=== PATIENT | female | born 1950 | race Caucasian/White ===

== ENCOUNTER 2016-03-27 10:08 | Outpatient (RCR) | payer MEDICARE, OTHER ==
--- OUTSIDE RECORDS SUMMARY | 2016-02-29 13:55 | XMS REPORT | Continuity of Care Document ---
Author Author [facility] Organization [facility] Address Unknown Phone Unavailable Care Team Providers Care Correctional Lieutenant Name Role Phone Diego Jackson PCP [phone] Source Comments Some departments are not documenting in the electronic medical record. If you do not see the information that you expected, contact Release of Information in the Health Information Management department at [phone] for further assistance in locating additional records.[facility] Active Allergies and Adverse Reactions Allergen Noted Date Severity Reactions Comments Flagyl 05/18/2014 HIVES Current Medications Prescription Sig. Disp. Refills Start End Date Status Date acetaminophen (TYLENOL) Take 1,000 mg by mouth Active 500 mg tablet every 6 hours as needed. cetirizine (ZYRTEC) 10 mg Take 10 mg by mouth Active tablet daily. diltiazem CD (CARDIZEM Take 240 mg by mouth Active CD) 240 mg capsule daily. LORazepam (ATIVAN) 1 mg Take 1 mg by mouth at Active tablet bedtime daily. losartan(+) (COZAAR) 100 Take 100 mg by mouth at Active mg tablet bedtime daily. aspirin 81 mg chewable Take 81 mg by mouth Active tablet daily. levothyroxine (SYNTHROID) Take 1 Tab by mouth 10 Tab 0 05/01/19 Active 75 mcg tablet daily. 16 Active Problems Problem Noted Date Lymphedema of left leg 11/26/2014 Overview: DX on visit 11/26/2014 L ast Assessment & Plan: Persistent lymphedema. Is minimal Seen specialist. Has a lymphocyst, presumptive on the left. CT pending. Vulvar cancer, carcinoma (HCC) 05/18/2014 Overview: Ms. Cruz is a 64 yo with recurrent Vulvar Cancer. PRIOR THERAPY: 1. She was seen by her OBGYN on 04/13/2014 for her annual examination as well as with c/o "irritated area on the labia from a yeast infection" . Examination showed a 2 cm raised ulcerated white lesion along the right labia majora/minora at about 3 o'clock. . A Biopsy was performed and showed: a well-differentiated at least superficially invasive squamous cell carcinoma.( PEGGY. [id number]). 2. Clinically the lesion was suspicious for invasive disease and on 05/27/2014 she underwent Left radical hemivulvectomy and left sentinel lymph node biopsy. Frozen section of the left nodes were negative. Final pathology: C/w a 2.6 cm lesion with DOI of 1.5 mm. All LNs were negative. 3. She was last seen in the office on 02/25/2015 for routine follow up. I noted that she had a more firm mass in her left groin. She felt that it was related to her lymphocyst which was present postoperative. However, she had an outside CT Scan done; results available on 03/22/2015 which showed: Reviewed outside films from her CT Scan dated 03/17/2015. She has a 4.6 x 5.9 cm soft tissue mass in the left inguinal region. I reviewed the films and it does appear to be solid and not cystic. Her sentinel nodes were negative. FNA was positive for recurrent disease. 4. PET scan on 04/15/2015, Large hypermetabolic left inguinal mass consistent with patient's known metastatic adenopathy. Scan revealed a 7.7cm mass, in left inguinal region 5. On 04/30/2015, s/p radical dissection of the left groin with both superficial and deep dissection into the inguinal ring,The tumor was adherent to the femoral vessels, and required sacrificing the lateral femoral v. To remove the tumor. It also extended into the inguinal canal and along the adductor longus. 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 (03/19), which measured 7.4 cm. 6. Pt started chemoradiation at [facility]. In Dr. Jones note indicates he is planning radiation to the left inguinal region and decision was made not to treat the vulvar region. 7. She was last seen by my ANDROID PROGRAMMER 2 weeks after starting her treatment, on 06/24/2015 8. She presents to the office today, 08/26/2015, having completed her treatment on 07/23/2015. She was treated only to the left groin at a dose of 6000 cGy. She was not given WPXRT. 9. Last seen on 10/28/2015. PETCT done showed: Postsurgical changes of the left groin with edema and loss of tissue fat planes without clearcut evidence for metastatic disease. No metabolically active abdominopelvic adenopathy or osseous lesions. PET/CT: done on 01/20/2016 Status post left groin resection with stable mild hypermetabolic activity in the operative bed, compatible with post therapeutic scarring. No hypermetabolic mass or lymphadenopathy to suggest tumor recurrence or metastatic disease. IMPRESSION CHEST: 1. Stable CT chest without evidence of metastatic disease or adenopathy. 2. Stable tiny noncalcified granulomas within both lungs. ABDOMEN AND PELVIS: 1. Stable CT abdomen/pelvis without evidence of metastatic disease or adenopathy. 2. Persistent soft tissue stranding within the left groin with decrease in size of postoperative fluid collection. Last Assessment & Plan: PLAN: RV in 3 months with PET/CT. Resolved Problems Problem Noted Date Resolved Date Cellulitis of left lower extremity 05/10/2015 06/28/2015 Lymphadenopathy 04/30/2015 05/10/2015 Mass of left inguinal region 04/22/2015 05/10/2015 Most Recent Encounters Date Type Specialty Providers Description 02/15/2016 Telephone Oncology Deedee Morales APRN Patient Questions - PT called regarding raised area noted in R labial area that has persistent since first surgery in 05/2014. Since vulvar surgery in 04/2015 and swelling no longer in that area, noted that this area is still there. Denies pain, drainage, or increased in size. Notices some irriation when walking. Has a RV in 04/2016 with Jean HELMS. Discussed with Daisha Morales ANDROID PROGRAMMER and states that the pt could be seen early if any changes of sites or symptoms worsen. Called pt and decided to keep appt with Jean Suarez in 05/05. 01/20/2016 Office Visit Oncology Bessie Muhammad MD Vulvar cancer, carcinoma (HCC) (Primary Dx) 01/20/2016 Hospital Radiology Bessie Muhammad MD Encounter 01/20/2016 Hospital Radiology Bessie Muhammad MD Encounter 01/20/2016 Ancillary Oncology Bessie Muhammad MD Vulvar cancer, carcinoma Orders (HCC) (Primary Dx) 01/20/2016 Screening Form 12/08/2015 Telephone Oncology Bessie Muhammad MD Records Request Social History Tobacco Use Types Packs/Day Years Used Date Former Smoker Cigarettes 0.2 4 Quit: 05/26/1979 Smokeless Tobacco: Never Used Tobacco Cessation: Counseling Given: No Comments: rare use in her 30's Alcohol Use Drinks/Week oz/Week Comments No Last Filed Vital Signs Vital Sign Reading Time Taken Blood Pressure 145/75 01/20/2016 1:56 PM CDT Pulse 72 01/20/2016 1:56 PM CDT Temperature 36.4 C (97.5 F) 01/20/2016 1:56 PM CDT Respiratory Rate 16 10/28/2015 3:07 PM CDT Height 1.626 m (5' 4.02") 01/20/2016 1:56 PM CDT Weight 91.445 kg (201 lb 9.6 oz) 01/20/2016 1:56 PM CDT Body Mass Index 34.59 01/20/2016 1:56 PM CDT Oxygen Saturation 98% 01/20/2016 1:56 PM CDT Plan of Care Date Type Specialty Providers Description 04/20/2016 Appointment Oncology Alexsandra Suarez PA [address] [address] [phone] (Fax) 07/20/2016 Appointment Radiology Bessie Muhammad MD [address] [facility] [address] [place] [address] [phone] (Fax) 07/20/2016 Appointment Radiology Bessie Muhammad MD [address] [facility] [address] [place] [address] [phone] (Fax) 07/20/2016 Appointment Oncology Bessie Muhammad MD [address] [facility] [address] [place] [address] [phone] (Fax) Health Maintenance Due Date Last Done Comments Hepatitis C Screening 1950 Physical (Comprehensive) 1956 Exam Pertussis Vaccine 1960 Tetanus Vaccine 1966 Breast Cancer Screening 1989 Colorectal Cancer 11/21/1999 Screening Shingles Vaccine 2009 Osteoporosis Screening 2014 Prevnar/Pneumovax (#1) 2014 Influenza Vaccine 11/18/2015 Results from Last 3 Months NM PET SCAN TORSO (SKULL-THIGHS) (01/20/2016 11:19 AM) Impressions Status post left groin resection with stable mild hypermetabolic activity in the operative bed, compatible with post therapeutic scarring. No hypermetabolic mass or lymphadenopathy to suggest tumor recurrence or metastatic disease. Approved by Raymond Nagel M.D. on 01/20/2016 11:41 AM By my electronic signature, I attest that I have personally reviewed the images for this examination and formulated the interpretations and opinions expressed in this report Finalized by Alonso Arteaga D.O. on 01/20/2016 12:56 PM. Dictated by Raymond Nagel M.D. on 01/20/2016 11:26 AM. Narrative PET/CT NECK, CHEST, ABDOMEN AND PELVIS CLINICAL HISTORY: 65-year-old female, vulvar cancer (carcinoma). RADIOPHARMACEUTICAL: 17 mCi IV Fluorine-18 fluorodeoxyglucose (FDG) BLOOD GLUCOSE LEVEL AT THE TIME OF RADIOPHARMACEUTICAL ADMINISTRATION: 95 mg / dL TECHNIQUE: Routine PET images ranging from the base of the skull to the upper thighs were obtained 75 minutes after IV administration of F-18 Fluorodeoxyglucose (FDG). PET images were reviewed in standard orthogonal projections. Low dose non- contrast CT imaging was performed for attenuation correction and localization purposes. COMPARISON: PET scan October 28, 2015. FINDINGS: Alonso Arteaga D.O. has personally reviewed these images and formulated the interpretations and opinions expressed in this report. Mean blood pool SUV 1.55, maximum 2.55. Previous mean 1.43, maximum 2.43. Mean hepatic SUV 2.58, maximum 3.89. Previous mean 2.35, maximum 4.39. Physiologic uptake of F-18 Fluorodeoxyglucose (FDG) tracer is seen within the brain, heart, kidneys, bladder, and bowel. Head / Neck: No metabolically active nodes are visualized in the head or neck. Chest: No metabolically active nodes are visualized in the chest. There is mild ectasia of the ascending thoracic aorta. Atherosclerotic calcifications are noted about the coronary arteries. There is a stable, subcentimeter pulmonary nodule (image 84). Abdomen / Pelvis: No metabolically active nodes are visualized in the abdomen or pelvis. Postsurgical changes of prior left groin resection with scarring and associated surgical clips throughout the operative bed. There is unchanged low level FDG uptake throughout the operative bed, demonstrating a maximum SUV of 2.8 (index 739), previously 3.0. Osseous Structures: No metabolically active areas are visualized in the osseous structures. Procedure Note Interface, Radiant Results - Angelina Jan 20, 2016 12:59 PM CDT PET/CT NECK, CHEST, ABDOMEN AND PELVIS CLINICAL HISTORY: 65-year-old female, vulvar cancer (carcinoma). RADIOPHARMACEUTICAL: 17 mCi IV Fluorine-18 fluorodeoxyglucose (FDG) BLOOD GLUCOSE LEVEL AT THE TIME OF RADIOPHARMACEUTICAL ADMINISTRATION: 95 mg / dL TECHNIQUE: Routine PET images ranging from the base of the skull to the upper thighs were obtained 75 minutes after IV administration of F-18 Fluorodeoxyglucose (FDG). PET images were reviewed in standard orthogonal projections. Low dose non- contrast CT imaging was performed for attenuation correction and localization purposes. COMPARISON: PET scan October 28, 2015. FINDINGS: Alonso Arteaga D.O. has personally reviewed these images and formulated the interpretations and opinions expressed in this report. Mean blood pool SUV 1.55, maximum 2.55. Previous mean 1.43, maximum 2.43. Mean hepatic SUV 2.58, maximum 3.89. Previous mean 2.35, maximum 4.39. Physiologic uptake of F-18 Fluorodeoxyglucose (FDG) tracer is seen within the brain, heart, kidneys, bladder, and bowel. Head / Neck: No metabolically active nodes are visualized in the head or neck. Chest: No metabolically active nodes are visualized in the chest. There is mild ectasia of the ascending thoracic aorta. Atherosclerotic calcifications are noted about the coronary arteries. There is a stable, subcentimeter pulmonary nodule (image 84). Abdomen / Pelvis: No metabolically active nodes are visualized in the abdomen or pelvis. Postsurgical changes of prior left groin resection with scarring and associated surgical clips throughout the operative bed. There is unchanged low level FDG uptake throughout the operative bed, demonstrating a maximum SUV of 2.8 (index 739), previously 3.0. Osseous Structures: No metabolically active areas are visualized in the osseous structures. IMPRESSION Status post left groin resection with stable mild hypermetabolic activity in the operative bed, compatible with post therapeutic scarring. No hypermetabolic mass or lymphadenopathy to suggest tumor recurrence or metastatic disease. Approved by Raymond Nagel M.D. on 01/20/2016 11:41 AM By my electronic signature, I attest that I have personally reviewed the images for this examination and formulated the interpretations and opinions expressed in this report Finalized by Alonso Arteaga D.O. on 01/20/2016 12:56 PM. Dictated by Raymond Nagel M.D. on 01/20/2016 11:[address] CHEST W CONTRAST (01/20/2016 11:17 AM) Impressions CHEST: 1. Stable CT chest without evidence of metastatic disease or adenopathy. 2. Stable tiny noncalcified granulomas within both lungs. ABDOMEN AND PELVIS: 1. Stable CT abdomen/pelvis without evidence of metastatic disease or adenopathy. 2. Persistent soft tissue stranding within the left groin with decrease in size of postoperative fluid collection. Approved by Tal Gipson M.D. on 01/20/2016 11:36 AM By my electronic signature, I attest that I have personally reviewed the images for this examination and formulated the interpretations and opinions expressed in this report Finalized by Figueroa Mccormick M.D. on 01/20/2016 12:14 PM. Dictated by Tal Gipson M.D. on 01/20/2016 11:[address] CHEST, ABDOMEN AND PELVIS Clinical Indication:Female, 65 years old. Vulvar carcinoma, evaluation of disease posttreatment Technique: Multiple contiguous axial images were obtained through the chest, abdomen and pelvis following the administration of IV contrast material. Portal venous and delayed images were obtained Post processing coronal and sagittal reconstruction images were made from the axial images. IV contrast: Isovue-370 Bowel contrast:Gastroview Comparison: CT abdomen/pelvis and PET scan October 28, 2015 CHEST FINDINGS: Lower Neck: Unremarkable. Axilla, Mediastinum and Carla: No axillary, mediastinal or hilar adenopathy. Heart and Great Vessels: Normal size heart with mild calcific coronary artery disease. Normal caliber thoracic aorta. Airway, Lungs and Pleura: Stable scattered sub-5 mm pulmonary nodules (for example series 2 images 33 in the right upper lobe and 46 in the left lower lobe ), unchanged since February 2015 and consistent with noncalcified granulomas. No new pulmonary nodule. No pleural effusion or focal consolidation. Chest Wall and Osseous Structures: No lytic or blastic osseous lesion. ABDOMEN AND PELVIS FINDINGS: Liver and Biliary system: Normal sized liver without new or enhancing hepatic lesion. Stable subcentimeter hypodense lesion within segment 2/, which is too small to characterize though unchanged since at least February 2015 and likely represents a simple cyst. Unremarkable gallbladder. Spleen: Unremarkable. Adrenal Glands and Kidneys: Unremarkable adrenal glands and kidneys. Pancreas and Retroperitoneum: Unremarkable pancreas. No retroperitoneal adenopathy. Aorta and Major Vessels: Normal caliber abdominal aorta with moderate aortoiliac calcified plaque. Bowel, Mesentery and Peritoneal space: Normal caliber large and small bowel. Normal appendix. No ascites or mesenteric adenopathy. Pelvis: Unremarkable mildly distended urinary bladder. No pelvic adenopathy. Abdominal wall and Osseous Structures: Redemonstration of postoperative soft tissue stranding within the left inguinal region with decrease in size of postoperative fluid collection. Asymmetry and soft tissue thickening within the vulvar region, likely from prior resection. Procedure Note Interface, Radiant Results - Angelina Jan 20, 2016 12:[address] CHEST, ABDOMEN AND PELVIS Clinical Indication: Female, 65 years old. Vulvar carcinoma, evaluation of disease posttreatment Technique: Multiple contiguous axial images were obtained through the chest, abdomen and pelvis following the administration of IV contrast material. Portal venous and delayed images were obtained Post processing coronal and sagittal reconstruction images were made from the axial images. IV contrast: Isovue-370 Bowel contrast: Gastroview Comparison: CT abdomen/pelvis and PET scan October 28, 2015 CHEST FINDINGS: Lower Neck: Unremarkable. Axilla, Mediastinum and Carla: No axillary, mediastinal or hilar adenopathy. Heart and Great Vessels: Normal size heart with mild calcific coronary artery disease. Normal caliber thoracic aorta. Airway, Lungs and Pleura: Stable scattered sub-5 mm pulmonary nodules (for example series 2 images 33 in the right upper lobe and 46 in the left lower lobe ), unchanged since February 2015 and consistent with noncalcified granulomas. No new pulmonary nodule. No pleural effusion or focal consolidation. Chest Wall and Osseous Structures: No lytic or blastic osseous lesion. ABDOMEN AND PELVIS FINDINGS: Liver and Biliary system: Normal sized liver without new or enhancing hepatic lesion. Stable subcentimeter hypodense lesion within segment 2/, which is too small to characterize though unchanged since at least February 2015 and likely represents a simple cyst. Unremarkable gallbladder. Spleen: Unremarkable. Adrenal Glands and Kidneys: Unremarkable adrenal glands and kidneys. Pancreas and Retroperitoneum: Unremarkable pancreas. No retroperitoneal adenopathy. Aorta and Major Vessels: Normal caliber abdominal aorta with moderate aortoiliac calcified plaque. Bowel, Mesentery and Peritoneal space: Normal caliber large and small bowel. Normal appendix. No ascites or mesenteric adenopathy. Pelvis: Unremarkable mildly distended urinary bladder. No pelvic adenopathy. Abdominal wall and Osseous Structures: Redemonstration of postoperative soft tissue stranding within the left inguinal region with decrease in size of postoperative fluid collection. Asymmetry and soft tissue thickening within the vulvar region, likely from prior resection. IMPRESSION CHEST: 1. Stable CT chest without evidence of metastatic disease or adenopathy. 2. Stable tiny noncalcified granulomas within both lungs. ABDOMEN AND PELVIS: 1. Stable CT abdomen/pelvis without evidence of metastatic disease or adenopathy. 2. Persistent soft tissue stranding within the left groin with decrease in size of postoperative fluid collection. Approved by Tal Gipson M.D. on 01/20/2016 11:36 AM By my electronic signature, I attest that I have personally reviewed the images for this examination and formulated the interpretations and opinions expressed in this report Finalized by Figueroa Mccormick M.D. on 01/20/2016 12:14 PM. Dictated by Tal Gipson M.D. on 01/20/2016 11:[address] ABD/PELVIS W CONTRAST (01/20/2016 11:17 AM) Impressions CHEST: 1. Stable CT chest without evidence of metastatic disease or adenopathy. 2. Stable tiny noncalcified granulomas within both lungs. ABDOMEN AND PELVIS: 1. Stable CT abdomen/pelvis without evidence of metastatic disease or adenopathy. 2. Persistent soft tissue stranding within the left groin with decrease in size of postoperative fluid collection. Approved by Tal Gipson M.D. on 01/20/2016 11:36 AM By my electronic signature, I attest that I have personally reviewed the images for this examination and formulated the interpretations and opinions expressed in this report Finalized by Figueroa Mccormick M.D. on 01/20/2016 12:14 PM. Dictated by Tal Gipson M.D. on 01/20/2016 11:[address] CHEST, ABDOMEN AND PELVIS Clinical Indication:Female, 65 years old. Vulvar carcinoma, evaluation of disease posttreatment Technique: Multiple contiguous axial images were obtained through the chest, abdomen and pelvis following the administration of IV contrast material. Portal venous and delayed images were obtained Post processing coronal and sagittal reconstruction images were made from the axial images. IV contrast: Isovue-370 Bowel contrast:Gastroview Comparison: CT abdomen/pelvis and PET scan October 28, 2015 CHEST FINDINGS: Lower Neck: Unremarkable. Axilla, Mediastinum and Carla: No axillary, mediastinal or hilar adenopathy. Heart and Great Vessels: Normal size heart with mild calcific coronary artery disease. Normal caliber thoracic aorta. Airway, Lungs and Pleura: Stable scattered sub-5 mm pulmonary nodules (for example series 2 images 33 in the right upper lobe and 46 in the left lower lobe ), unchanged since February 2015 and consistent with noncalcified granulomas. No new pulmonary nodule. No pleural effusion or focal consolidation. Chest Wall and Osseous Structures: No lytic or blastic osseous lesion. ABDOMEN AND PELVIS FINDINGS: Liver and Biliary system: Normal sized liver without new or enhancing hepatic lesion. Stable subcentimeter hypodense lesion within segment 2/, which is too small to characterize though unchanged since at least February 2015 and likely represents a simple cyst. Unremarkable gallbladder. Spleen: Unremarkable. Adrenal Glands and Kidneys: Unremarkable adrenal glands and kidneys. Pancreas and Retroperitoneum: Unremarkable pancreas. No retroperitoneal adenopathy. Aorta and Major Vessels: Normal caliber abdominal aorta with moderate aortoiliac calcified plaque. Bowel, Mesentery and Peritoneal space: Normal caliber large and small bowel. Normal appendix. No ascites or mesenteric adenopathy. Pelvis: Unremarkable mildly distended urinary bladder. No pelvic adenopathy. Abdominal wall and Osseous Structures: Redemonstration of postoperative soft tissue stranding within the left inguinal region with decrease in size of postoperative fluid collection. Asymmetry and soft tissue thickening within the vulvar region, likely from prior resection. Procedure Note Interface, Radiant Results - Angelina Jan 20, 2016 12:[address] CHEST, ABDOMEN AND PELVIS Clinical Indication: Female, 65 years old. Vulvar carcinoma, evaluation of disease posttreatment Technique: Multiple contiguous axial images were obtained through the chest, abdomen and pelvis following the administration of IV contrast material. Portal venous and delayed images were obtained Post processing coronal and sagittal reconstruction images were made from the axial images. IV contrast: Isovue-370 Bowel contrast: Gastroview Comparison: CT abdomen/pelvis and PET scan October 28, 2015 CHEST FINDINGS: Lower Neck: Unremarkable. Axilla, Mediastinum and Carla: No axillary, mediastinal or hilar adenopathy. Heart and Great Vessels: Normal size heart with mild calcific coronary artery disease. Normal caliber thoracic aorta. Airway, Lungs and Pleura: Stable scattered sub-5 mm pulmonary nodules (for example series 2 images 33 in the right upper lobe and 46 in the left lower lobe ), unchanged since February 2015 and consistent with noncalcified granulomas. No new pulmonary nodule. No pleural effusion or focal consolidation. Chest Wall and Osseous Structures: No lytic or blastic osseous lesion. ABDOMEN AND PELVIS FINDINGS: Liver and Biliary system: Normal sized liver without new or enhancing hepatic lesion. Stable subcentimeter hypodense lesion within segment 2/, which is too small to characterize though unchanged since at least February 2015 and likely represents a simple cyst. Unremarkable gallbladder. Spleen: Unremarkable. Adrenal Glands and Kidneys: Unremarkable adrenal glands and kidneys. Pancreas and Retroperitoneum: Unremarkable pancreas. No retroperitoneal adenopathy. Aorta and Major Vessels: Normal caliber abdominal aorta with moderate aortoiliac calcified plaque. Bowel, Mesentery and Peritoneal space: Normal caliber large and small bowel. Normal appendix. No ascites or mesenteric adenopathy. Pelvis: Unremarkable mildly distended urinary bladder. No pelvic adenopathy. Abdominal wall and Osseous Structures: Redemonstration of postoperative soft tissue stranding within the left inguinal region with decrease in size of postoperative fluid collection. Asymmetry and soft tissue thickening within the vulvar region, likely from prior resection. IMPRESSION CHEST: 1. Stable CT chest without evidence of metastatic disease or adenopathy. 2. Stable tiny noncalcified granulomas within both lungs. ABDOMEN AND PELVIS: 1. Stable CT abdomen/pelvis without evidence of metastatic disease or adenopathy. 2. Persistent soft tissue stranding within the left groin with decrease in size of postoperative fluid collection. Approved by Tal Gipson M.D. on 01/20/2016 11:36 AM By my electronic signature, I attest that I have personally reviewed the images for this examination and formulated the interpretations and opinions expressed in this report Finalized by Figueroa Mccormick M.D. on 01/20/2016 12:14 PM. Dictated by Tal Gipson M.D. on 01/20/2016 11:18 AM. POC CREATININE, RAD (01/20/2016 9:57 AM) Component Value Range Creatinine, POC 0.6 0.4-1.00 MG/DL
[2016-03-27 10:22] LABS: BASOPHILS % (AUTO) 0 % (0-10); EOSINOPHILS # (AUTO) 0.1 10^3/uL (0.0-0.3); EOSINOPHILS % (AUTO) 2 % (0-10); LYMPHOCYTES # (AUTO) 1.4 X 10^3 (1.0-4.0); LYMPHOCYTES % (AUTO) 29 % (12-44); MEAN CORPUSCULAR HEMOGLOBIN 30 PG (25-34); MEAN CORPUSCULAR HGB CONC 33 G/DL (32-36); MEAN CORPUSCULAR VOLUME 90 FL (80-99); MEAN PLATELET VOLUME 10.4 FL (7.4-10.4); MONOCYTES # (AUTO) 0.8 X 10^3 (0.0-1.0); MONOCYTES % (AUTO) 17 % (0-12); NEUTROPHILS # (AUTO) 2.5 X 10^3 (1.8-7.8); NEUTROPHILS % (AUTO) 53 % (42-75); PLATELET COUNT 283 10^3/uL (130-400); RED BLOOD COUNT 4.43 10^6/uL (4.35-5.85); RED CELL DISTRIBUTION WIDTH 14.8 % (10.0-14.5); WHITE BLOOD COUNT 4.7 10^3/uL (4.3-11.0)
[2016-03-27 11:15] LABS: ALANINE AMINOTRANSFERASE 15 U/L (0-55); ANION GAP 8 MMOL/L (5-14); ASPARTATE AMINO TRANSFERASE 16 U/L (5-34); BILIRUBIN,TOTAL 0.5 MG/DL (0.1-1.0); BLOOD UREA NITROGEN 16 MG/DL (7-18); BUN/CREATININE RATIO 23; CALCIUM 9.1 MG/DL (8.5-10.1); CARBON DIOXIDE 26 MMOL/L (21-32); CHLORIDE 106 MMOL/L (98-107); GFR ESTIMATED > 60; GLUCOSE 118 MG/DL (70-105); LACTATE DEHYDROGENASE 211 U/L (125-220); POTASSIUM 4.1 MMOL/L (3.6-5.0); SODIUM 140 MMOL/L (135-145); TOTAL PROTEIN 6.7 G/DL (6.4-8.2)
== END 2016-05-29 | disposition home or self-care (01) ==
LOC: ONC 10:08
PROVIDERS: ATTEND Internal Medicine Hematology & Oncology
DX: C51.9 Malignant neoplasm of vulva, unspecified (principal); I10 Essential (primary) hypertension; E03.9 Hypothyroidism, unspecified; I89.0 Lymphedema, not elsewhere classified; Z79.899 Other long term (current) drug therapy
CPT/HCPCS: 36415; 80053; 83615; 85025; 99213; 99214

== ENCOUNTER 2016-06-26 10:01 | Outpatient (RCR) | payer MEDICARE, OTHER ==
--- OUTSIDE RECORDS SUMMARY | 2016-05-30 14:22 | XMS REPORT | Continuity of Care Document ---
Author Author [facility] Organization [facility] Address Unknown Phone Unavailable Care Team Providers Care Washer Engineer Helper Name Role Phone Diego Jackson PCP [phone] Source Comments Some departments are not documenting in the electronic medical record. If you do not see the information that you expected, contact Release of Information in the Health Information Management department at [phone] for further assistance in locating additional records.[facility] Active Allergies and Adverse Reactions Allergen Noted [...] daily. 16 Active Problems Problem Noted Date Vaginal pain 04/24/2016 Lymphedema of left leg 11/26/2014 Overview: DX [...] at least superficially invasive squamous cell carcinoma.( [facility]. [id number]). 2. Clinically the lesion was suspicious for [...] 7.4 cm. 6. Pt started chemoradiation at [facility]. In Dr. Jones note indicates he is planning radiation to the left inguinal region and decision was made not to treat the vulvar region. 7. She was last seen by my MANAGER SERVICE DESK 2 weeks after starting her treatment, on [...] Recent Encounters Date Type Specialty Providers Description 04/20/2016 Office Visit Oncology Alexsandra Suarez PA Vulvar cancer, carcinoma (HCC) (Primary Dx); Vaginal pain Social History Tobacco Use Types Packs/Day Years Used Date Former Smoker Cigarettes 0.2 4 Quit: 05/26/1979 Smokeless Tobacco: Never Used Tobacco Cessation: Counseling Given: No Comments: rare use in her 30's Alcohol Use Drinks/Week oz/Week Comments No Last Filed Vital Signs Vital Sign Reading Time Taken Blood Pressure 153/89 04/20/2016 12:58 PM CEO Pulse 69 04/20/2016 12:58 PM CEO Temperature 36.3 C (97.4 F) 04/20/2016 12:58 PM CEO Respiratory Rate 16 10/28/2015 3:07 PM CDT Height 1.626 m (5' 4.02") 04/20/2016 12:58 PM CEO Weight 92.171 kg (203 lb 3.2 oz) 04/20/2016 12:58 PM CEO Body Mass Index 34.86 04/20/2016 12:58 PM CEO Oxygen Saturation 98% 04/20/2016 12:58 PM CEO Plan of Care Date Type Specialty Providers Description 07/20/2016 Appointment Radiology Bessie Muhammad MD [address] [facility] [address] [place] [address] [phone] (Fax) 07/20/2016 Appointment Radiology Bessie Muhammad MD [address] [facility] [address] [place] [address] [phone] (Fax) 07/20/2016 Appointment Oncology Bessie Muhammad MD [address] [facility] [address] [place] [address] [phone] (Fax) Health Maintenance Due Date Last Done Comments Hepatitis C Screening 1950 Physical (Comprehensive) 1956 Exam Pertussis Vaccine 1960 Tetanus Vaccine 1966 Breast Cancer Screening 1989 Colorectal Cancer 11/21/1999 Screening Shingles Vaccine 2009 Osteoporosis Screening 2014 Prevnar/Pneumovax (#1) 2014 Influenza Vaccine 11/18/2015 Results from Last 3 Months Not on file
[2016-06-26 10:15] LABS: BASOPHILS % (AUTO) 0 % (0-10); EOSINOPHILS # (AUTO) 0.1 10^3/uL (0.0-0.3); EOSINOPHILS % (AUTO) 2 % (0-10); LYMPHOCYTES # (AUTO) 1.6 X 10^3 (1.0-4.0); LYMPHOCYTES % (AUTO) 40 % (12-44); MEAN CORPUSCULAR HEMOGLOBIN 30 PG (25-34); MEAN CORPUSCULAR HGB CONC 33 G/DL (32-36); MEAN CORPUSCULAR VOLUME 91 FL (80-99); MEAN PLATELET VOLUME 9.7 FL (7.4-10.4); MONOCYTES # (AUTO) 0.8 X 10^3 (0.0-1.0); MONOCYTES % (AUTO) 19 % (0-12); NEUTROPHILS # (AUTO) 1.5 X 10^3 (1.8-7.8); NEUTROPHILS % (AUTO) 39 % (42-75); PLATELET COUNT 255 10^3/uL (130-400); RED BLOOD COUNT 4.16 10^6/uL (4.35-5.85); RED CELL DISTRIBUTION WIDTH 15.5 % (10.0-14.5)
[2016-06-26 10:58] LABS: ALANINE AMINOTRANSFERASE 14 U/L (0-55); ALBUMIN 3.7 G/DL (3.2-4.5); ANION GAP 7 MMOL/L (5-14); ASPARTATE AMINO TRANSFERASE 19 U/L (5-34); BILIRUBIN,TOTAL 0.4 MG/DL (0.1-1.0); BLOOD UREA NITROGEN 12 MG/DL (7-18); BUN/CREATININE RATIO 19; CARBON DIOXIDE 27 MMOL/L (21-32); CHLORIDE 107 MMOL/L (98-107); CREATININE SERUM 0.64 MG/DL (0.60-1.30); GFR ESTIMATED > 60; GLUCOSE 99 MG/DL (70-105); LACTATE DEHYDROGENASE 220 U/L (125-220); POTASSIUM 4.2 MMOL/L (3.6-5.0); SODIUM 141 MMOL/L (135-145); TOTAL PROTEIN 6.3 G/DL (6.4-8.2)
== END 2016-08-28 | disposition home or self-care (01) ==
LOC: ONC 10:01
PROVIDERS: ATTEND Internal Medicine Hematology & Oncology
DX: C51.9 Malignant neoplasm of vulva, unspecified (principal); I10 Essential (primary) hypertension; E03.9 Hypothyroidism, unspecified; I89.0 Lymphedema, not elsewhere classified; Z79.899 Other long term (current) drug therapy
CPT/HCPCS: 36415; 80053; 83615; 85025; 99213

== ENCOUNTER → 2016-08-08 | Outpatient (CLI) | payer MEDICARE, OTHER ==
--- NOTE | 2016-08-09 11:38 | Diagnostic Imaging Report ---
EXAMINATION: Bilateral screening mammogram with a Computer Aided Detection (CAD) system. INDICATION: Screening. No current complaints stated on the questionnaire. COMPARISON: 06/11/2014. FINDINGS: The breasts are composed of scattered fibroglandular densities. There is no mass, architectural distortion, or suspicious calcifications. Allowing for technique and positional differences, no suspicious change is seen. IMPRESSION: No significant change. ACR BI-RADS Category 2: Benign findings. Result letter will be mailed to the patient. Note: At least 10% of breast cancer is not imaged by mammography. Dictated by: Dictated on workstation # [id number]
== END ==
LOC: RAD 13:40
PROVIDERS: ATTEND Nurse Practitioner Adult Health
DX: Z12.31 Encounter for screening mammogram for malignant neoplasm of breast (principal)
CPT/HCPCS: 77067

== ENCOUNTER 2016-10-23 08:52 | Outpatient (RCR) | payer MEDICARE, OTHER ==
[2016-10-23 09:14] LABS: BASOPHILS % (AUTO) 1 % (0-10); EOSINOPHILS # (AUTO) 0.1 10^3/uL (0.0-0.3); EOSINOPHILS % (AUTO) 2 % (0-10); LYMPHOCYTES # (AUTO) 1.3 X 10^3 (1.0-4.0); LYMPHOCYTES % (AUTO) 29 % (12-44); MEAN CORPUSCULAR HGB CONC 33 G/DL (32-36); MEAN CORPUSCULAR VOLUME 90 FL (80-99); MEAN PLATELET VOLUME 10.1 FL (7.4-10.4); MONOCYTES # (AUTO) 0.8 X 10^3 (0.0-1.0); MONOCYTES % (AUTO) 18 % (0-12); NEUTROPHILS # (AUTO) 2.2 X 10^3 (1.8-7.8); NEUTROPHILS % (AUTO) 50 % (42-75); PLATELET COUNT 275 10^3/uL (130-400); RED BLOOD COUNT 4.34 10^6/uL (4.35-5.85); WHITE BLOOD COUNT 4.5 10^3/uL (4.3-11.0)
[2016-10-23 09:17] LABS: MEAN CORPUSCULAR HEMOGLOBIN 29 PG (25-34)
[2016-10-23 09:54] LABS: ALANINE AMINOTRANSFERASE 12 U/L (0-55); ALBUMIN 3.8 GM/DL (3.2-4.5); ANION GAP 10 MMOL/L (5-14); ASPARTATE AMINO TRANSFERASE 17 U/L (5-34); BILIRUBIN,TOTAL 0.4 MG/DL (0.1-1.0); BLOOD UREA NITROGEN 12 MG/DL (7-18); BUN/CREATININE RATIO 18; CALCIUM 9.2 MG/DL (8.5-10.1); CARBON DIOXIDE 24 MMOL/L (21-32); CHLORIDE 107 MMOL/L (98-107); CREATININE SERUM 0.67 MG/DL (0.60-1.30); GFR ESTIMATED > 60; GLUCOSE 96 MG/DL (70-105); LACTATE DEHYDROGENASE 210 U/L (125-220); SODIUM 141 MMOL/L (135-145); TOTAL PROTEIN 6.6 GM/DL (6.4-8.2)
== END 2016-12-16 | disposition home or self-care (01) ==
LOC: ONC 08:52
PROVIDERS: ATTEND Internal Medicine Hematology & Oncology
DX: C51.9 Malignant neoplasm of vulva, unspecified (principal); I10 Essential (primary) hypertension; E03.9 Hypothyroidism, unspecified; I89.0 Lymphedema, not elsewhere classified; Z79.899 Other long term (current) drug therapy
CPT/HCPCS: 36415; 80053; 83615; 85025; 99213

== ENCOUNTER 2017-03-07 08:52 | Outpatient (RCR) | payer MEDICARE, OTHER ==
--- NOTE | 2017-02-06 10:14 | HISTORY AND PHYSICAL ---
DATE OF SERVICE: DATE OF ADMISSION: 02/01/2017 COLONOSCOPY HISTORY AND PHYSICAL HISTORY OF PRESENT ILLNESS: The patient is a 66-year-old white female who is being scheduled for her first screening colonoscopy. She reports that she feels well. She has had no bowel habit changed, denies diarrhea or constipation problems. She has noted no bright red blood per rectum or melena and she is not aware of any family history for colon cancer. PAST MEDICAL HISTORY: Significant for vulvar squamous cell carcinoma diagnosed in 03/2014. She is status post left vulvectomy with left inguinal node recurrence for which she underwent radiation therapy. This occurred in 03/2015. PET scan one year ago was stable and she is scheduled for another study in several weeks at where she has been treated. She has a longstanding history of hypertension as well as osteoarthritis. She underwent right total knee replacement in 11/2017. PHYSICAL EXAMINATION: GENERAL: Reveals a pleasant white female appears to be in no acute distress. VITAL SIGNS: Weight was down to 6.8 pounds from 2 months ago, post-right total knee replacement. Blood pressure 140/90. She reports at home, all of her blood pressures have been in the 120/70s to 80 range. She does have a known significant white coat component. NECK: Revealed no JVD, adenopathy or bruits. CHEST: Clear. CARDIOVASCULAR: Revealed a regular rate and rhythm without murmur, S3 or S4. ABDOMEN: She has postsurgical changes in the left groin, but no evidence for adenopathy is noted. EXTREMITIES: Reveal no cyanosis, clubbing or edema. ASSESSMENT AND PLAN: 1. 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 2. Hypertension with white coat component, doing well. 3. History of lymphedema of the left lower extremity, essentially resolved at this point. 4. The patient was set up for screening colonoscopy. Prep instructions with split dose of Colyte type prep were given and questions were answered in regards to the rationale of recommending screening colonoscopy, 25 minutes of my care time was spent with another 15 minutes of staff time in setting of the procedure and explaining prep instructions. The patient was scheduled for routine follow up in 4 months. Job ID: [id number] DocumentID: [id number] Dictated Date: 02/06/2017 09:30:49 Insole Rasper Date: 02/06/2017 10:13:59 Dictated By: JEFFERSON TREVINO MD
[2017-03-07 09:38] LABS: BASOPHILS % (AUTO) 0 % (0-10); EOSINOPHILS # (AUTO) 0.1 10^3/uL (0.0-0.3); EOSINOPHILS % (AUTO) 2 % (0-10); HEMATOCRIT 39 % (35-52); HEMOGLOBIN 12.7 G/DL (11.5-16.0); LYMPHOCYTES # (AUTO) 1.6 X 10^3 (1.0-4.0); LYMPHOCYTES % (AUTO) 33 % (12-44); MEAN CORPUSCULAR HEMOGLOBIN 28 PG (25-34); MEAN CORPUSCULAR HGB CONC 33 G/DL (32-36); MEAN CORPUSCULAR VOLUME 86 FL (80-99); MEAN PLATELET VOLUME 10.6 FL (7.4-10.4); MONOCYTES % (AUTO) 21 % (0-12); NEUTROPHILS % (AUTO) 44 % (42-75); PLATELET COUNT 300 10^3/uL (130-400); RED BLOOD COUNT 4.47 10^6/uL (4.35-5.85); WHITE BLOOD COUNT 4.7 10^3/uL (4.3-11.0)
[2017-03-07 09:58] LABS: ALANINE AMINOTRANSFERASE 12 U/L (0-55); ALBUMIN 3.8 GM/DL (3.2-4.5); ALKALINE PHOSPHATASE 86 U/L (40-136); BILIRUBIN,TOTAL 0.4 MG/DL (0.1-1.0); BUN/CREATININE RATIO 19; CALCIUM 9.2 MG/DL (8.5-10.1); CARBON DIOXIDE 26 MMOL/L (21-32); CHLORIDE 108 MMOL/L (98-107); CREATININE SERUM 0.62 MG/DL (0.60-1.30); GFR ESTIMATED > 60; GLUCOSE 102 MG/DL (70-105); POTASSIUM 4.1 MMOL/L (3.6-5.0); SODIUM 140 MMOL/L (135-145); TOTAL PROTEIN 6.8 GM/DL (6.4-8.2)
[2017-03-16] MEDS ORDERED: ASPI-586 PO (11:18)
[2017-03-16] MEDS ORDERED: ACET325T38 PO (11:18)
[2017-03-16] MEDS ORDERED: CETI10TA17 PO (11:18)
[2017-03-16] MEDS ORDERED: LEVO75TA6 PO (11:18)
[2017-03-16] MEDS ORDERED: DILT240C53 PO (11:18)
[2017-03-16] MEDS ORDERED: LORA1TAB PO (11:18)
[2017-03-16] MEDS ORDERED: LOSA100T28 PO (11:18)
== END 2017-05-02 | disposition home or self-care (01) ==
LOC: ONC 08:52
PROVIDERS: ATTEND Internal Medicine Hematology & Oncology
DX: C51.9 Malignant neoplasm of vulva, unspecified (principal); I10 Essential (primary) hypertension; E03.9 Hypothyroidism, unspecified; I89.0 Lymphedema, not elsewhere classified; Z79.899 Other long term (current) drug therapy
CPT/HCPCS: 36415; 80053; 85025; 99213

== ENCOUNTER 2017-03-16 05:35 | Outpatient (CLI) | payer MEDICARE, OTHER ==
[~2017-03-16] VITALS: Ht 163.8 cm; Wt 91.6 kg
[2017-03-16] MEDS ORDERED: CETI10TA17 PO (11:18)
[2017-03-16] MEDS ORDERED: ASPI-586 PO (11:18)
[2017-03-16] MEDS ORDERED: DILT240C53 PO (11:18)
[2017-03-16] MEDS ORDERED: LEVO75TA6 PO (11:18)
[2017-03-16] MEDS ORDERED: LORA1TAB PO (11:18)
[2017-03-16] MEDS ORDERED: LOSA100T28 PO (11:18)
[2017-03-16] MEDS ORDERED: ACET325T38 PO (11:18)
== END 2017-03-16 11:26 ==
LOC: PREOP 05:35
PROVIDERS: ATTEND Internal Medicine
DX: Z01.818 Encounter for other preprocedural examination (principal); Z12.11 Encounter for screening for malignant neoplasm of colon

== ENCOUNTER 2017-03-23 06:59 | Day surgery (SDC) | payer MEDICARE, OTHER ==
--- NOTE | 2017-03-06 13:29 | HISTORY AND PHYSICAL ---
DATE OF SERVICE: ADDENDUM DATE OF ADMISSION: Upcoming colonoscopy on 03/23/2017. HISTORY OF PRESENT ILLNESS: The patient is a 66-year-old white female who I originally saw on 02/01 and set up for her first screening colonoscopy. She had to postpone the procedure to 03/23. This is an addendum H and P. For full transcript and H and P, refer to report from 02/01/2017. There have been no interval changes in her health history. She reports that she feels well. She has had no chest pain, shortness of breath or dyspnea on exertion. She denies any abdominal symptoms. PHYSICAL EXAMINATION: GENERAL: Reveals white female, appears to be in no acute distress. VITAL SIGNS: Blood pressure 140/86. CHEST: Clear. CARDIOVASCULAR: Reveals a regular rate and rhythm without murmur, S3 or S4. EXTREMITIES: Reveal no cyanosis, clubbing or edema. ASSESSMENT: The patient is set up for her first screening colonoscopy on the 03/23. She already has prep instructions. There are no contraindications proceeding with planned procedure. Job ID: [id number] DocumentID: [id number] Dictated Date: 03/06/2017 09:00:10 Help Desk Consultant Date: 03/06/2017 11:25:26 Dictated By: JEFFERSON TREVINO MD
[~2017-03-23] VITALS: Ht 163.8 cm; Wt 91.6 kg
[~2017-03-23 06:59] MED LIST: ACET325T38 PO; ASPI-586 PO; CETI10TA17 PO; DILT240C53 PO; LEVO75TA6 PO; LORA1TAB PO; LOSA100T28 PO
[2017-03-23] MEDS ORDERED: 1/2 NS IV SOLUTION 1,000 ML IV STA (07:12)
[2017-03-23] MEDS ORDERED: LIDOCAINE JELLY 2% (XYLOCAINE) 5 ML TUBE MM PRN (07:15)
[2017-03-23 07:27] VITALS: BP 129/98
[2017-03-23] MEDS ORDERED: MIDAZOLAM 2 MG/2 ML (VERSED) VIAL ONE ×3 (07:38→08:06)
[2017-03-23] MEDS ORDERED: LIDOCAINE JELLY 2% (XYLOCAINE) 5 ML TUBE ONE (07:38)
[2017-03-23] MEDS ORDERED: fentaNYL INJECTION 100 MCG/2 ML AMP ONE (07:38)
--- NOTE | 2017-03-23 07:46 | Pre-Op Note & Conscious Sedat ---
Pre-Operative Progress Note H&P Reviewed The H&P was reviewed, patient examined and no changes noted. Date H&P Reviewed: Mar 23, 2017 Time H&P Reviewed: 07:46 Conscious Sedation Pre-Proced ASA Class: 2 Airway Mallampati Classification: ([place] appropriate class) I. II. III, IV Lungs Heart ASA score ASA 1: a normal healthy patient ASA 2: a patient with a mild systemic disease (mid diabetes, controlled hypertension, obesity ASA 3: a patient with a severe systemic disease that limits activity (angina , COPD, prior Myocardial infarction) ASA 4: a patient with an incapacitating disease that is a constant threat to life (CHF, renal failure) ASA 5: a moribund patient not expected to survive 24 hrs. (ruptured aneurysm) ASA 6: a declared brain patient whose organs are being harvested. For emergent operations, add the letter E after the classification Grade 3 Sedation Plan: Analgesia, Amnesia, Plan communicated to team members, Discussed options with patient/fam, Discussed risks with patient/fam Note The patient is an appropriate candidate to undergo the planned procedure, sedation, and anesthesia. The patient immediately re-assessed prior to indication. JEFFERSON TREVINO MD Mar 23, 2017 07:46
[2017-03-23] MEDS: fentaNYL INJECTION 100 MCG/2 ML AMP IVP PRN ×2 (07:54→07:56)
[2017-03-23] MEDS: MIDAZOLAM 2 MG/2 ML (VERSED) VIAL IVP PRN ×3 (07:55→08:08)
[2017-03-23 08:45] VITALS: BP 128/75
[2017-03-23 09:15] VITALS: BP 139/83
--- NOTE | 2017-03-23 20:36 | OPERATIVE REPORT ---
DATE OF SERVICE: COLONOSCOPY INDICATION FOR THE PROCEDURE: Screening colonoscopy. The patient was placed in the left lateral decubitus position. Prior to undergoing colonoscopy, digital rectal evaluation was performed. Anal sphincter tone was normal and the perianal reflex was intact. No abnormalities were noted on digital inspection of anal canal or distal rectal vault. The colonoscope was then inserted into the rectum and under direct visualization advanced to the cecum. The cecum was identified by identification of the ileocecal valve and cecal strap. Photographic documentation was obtained. Careful inspection was made as the colonoscope was withdrawn. FINDINGS: There was no evidence for internal or external hemorrhoids. Telangiectatic changes in the mid and distal rectum compatible with radiation proctitis. No ulceration and no evidence for neoplasia was noted in the rectum. Several small sigmoid diverticulum were present with one 6 mm adenomatous appearing polyp, nonulcerated, sessile, noted at 25 cm from the anal verge in the mid sigmoid colon. The remainder of the sigmoid colon was unremarkable. Descending colon, splenic flexure, transverse colon and ascending colon were unremarkable. Present in the cecum was a diminutive 3 mm sessile adenomatous appearing polyp. It was biopsied and ablated and submitted for histopathology. There was no subsequent blood loss. ASSESSMENT: 1. Two small polyps were removed via hot forceps with no significant bleeding, larger one located in the mid sigmoid colon at 6 mm and smaller one located in the cecum at 3 mm. We will need to await histopathology report before making future surveillance colonoscopy recommendation. 2. Findings compatible with mild radiation proctitis as noted above. Job ID: [id number] DocumentID: [id number] Dictated Date: 03/23/2017 11:26:28 Big Data Developer Date: 03/23/2017 13:44:13 Dictated By: JEFFERSON TREVINO MD [facility]
== END 2017-03-23 09:45 | disposition home or self-care (01) ==
LOC: ENDO 06:59
PROVIDERS: ATTEND Internal Medicine
DX: Z12.11 Encounter for screening for malignant neoplasm of colon (principal); D12.5 Benign neoplasm of sigmoid colon; K63.5 Polyp of colon; K57.30 Diverticulosis of large intestine without perforation or abscess without bleeding

== ENCOUNTER 2017-07-31 15:23 | Outpatient (RCR) | payer MEDICARE, OTHER ==
[2017-07-06 14:18] LABS: BASOPHILS % (AUTO) 0 % (0-10); EOSINOPHILS # (AUTO) 0.1 10^3/uL (0.0-0.3); EOSINOPHILS % (AUTO) 2 % (0-10); HEMATOCRIT 38 % (35-52); HEMOGLOBIN 12.5 G/DL (11.5-16.0); LYMPHOCYTES # (AUTO) 1.8 X 10^3 (1.0-4.0); LYMPHOCYTES % (AUTO) 34 % (12-44); MEAN CORPUSCULAR HEMOGLOBIN 28 PG (25-34); MEAN CORPUSCULAR HGB CONC 33 G/DL (32-36); MEAN CORPUSCULAR VOLUME 84 FL (80-99); MEAN PLATELET VOLUME 10.3 FL (7.4-10.4); MONOCYTES # (AUTO) 0.8 X 10^3 (0.0-1.0); MONOCYTES % (AUTO) 15 % (0-12); NEUTROPHILS # (AUTO) 2.6 X 10^3 (1.8-7.8); NEUTROPHILS % (AUTO) 48 % (42-75); PLATELET COUNT 323 10^3/uL (130-400); RED BLOOD COUNT 4.49 10^6/uL (4.35-5.85); RED CELL DISTRIBUTION WIDTH 16.6 % (10.0-14.5); WHITE BLOOD COUNT 5.3 10^3/uL (4.3-11.0)
[2017-07-06 14:41] LABS: ALANINE AMINOTRANSFERASE 13 U/L (0-55); ALBUMIN 4.2 GM/DL (3.2-4.5); ALKALINE PHOSPHATASE 89 U/L (40-136); BILIRUBIN,TOTAL 0.3 MG/DL (0.1-1.0); BUN/CREATININE RATIO 13; CALCIUM 9.4 MG/DL (8.5-10.1); CARBON DIOXIDE 24 MMOL/L (21-32); CHLORIDE 109 MMOL/L (98-107); GFR ESTIMATED > 60; GLUCOSE 126 MG/DL (70-105); POTASSIUM 3.7 MMOL/L (3.6-5.0); SODIUM 141 MMOL/L (135-145); TOTAL PROTEIN 7.1 GM/DL (6.4-8.2)
== END 2017-10-04 | disposition home or self-care (01) ==
LOC: ONC 15:23
PROVIDERS: ATTEND Internal Medicine Hematology & Oncology
DX: Z08 Encounter for follow-up examination after completed treatment for malignant neoplasm (principal); Z85.44 Personal history of malignant neoplasm of other female genital organs; I89.0 Lymphedema, not elsewhere classified; I10 Essential (primary) hypertension; E03.9 Hypothyroidism, unspecified; Z79.899 Other long term (current) drug therapy; Z92.21 Personal history of antineoplastic chemotherapy; Z92.3 Personal history of irradiation
CPT/HCPCS: 80053; 85025; 99213

== ENCOUNTER → 2017-08-20 | Outpatient (CLI) | payer MEDICARE, OTHER ==
--- NOTE | 2017-08-20 20:01 | Diagnostic Imaging Report ---
INDICATION: Screening. COMPARISON: Comparison made with prior examinations from 08/08/2016 back through 03/14/2013. The current study was also evaluated with a Computer Aided Detection (CAD) system. FINDINGS: The breasts are predominantly fatty with a few scattered areas of fibroglandular tissue. There are benign-type calcifications. There is no dominant mass, spiculated lesion, or suspicious calcification identified. The skin, nipples, and axillae are unremarkable. IMPRESSION: Benign. ACR BI-RADS Category 2: Benign findings. Result letter will be mailed to the patient. Note: At least 10% of breast cancer is not imaged by mammography. Dictated by: Dictated on workstation # [id number]
== END ==
LOC: RAD 10:34
PROVIDERS: ATTEND Internal Medicine
DX: Z12.31 Encounter for screening mammogram for malignant neoplasm of breast (principal)
CPT/HCPCS: 77067

== ENCOUNTER 2018-06-18 06:00 | Outpatient (RCR) | payer MEDICARE, OTHER ==
[~2018-06-18 06:00] MED LIST changes: -LOSA100T28 PO; +LOSA100T57 PO
== END 2018-06-21 | disposition home or self-care (01) ==
LOC: CR3 06:00
PROVIDERS: ATTEND Internal Medicine
DX: Z29.8 Encounter for other specified prophylactic measures (principal)

== ENCOUNTER 2018-07-22 10:30 | Outpatient (RCR) | payer MEDICARE, OTHER | END 2018-07-24 | disposition home or self-care (01) | LOC: CR3 10:30 | PROVIDERS: ATTEND Internal Medicine | DX: Z29.8 Encounter for other specified prophylactic measures (principal) ==

== ENCOUNTER 2018-07-31 08:56 | Outpatient (RCR) | payer MEDICARE, OTHER ==
[2018-07-31 09:08] LABS: BASOPHILS % (AUTO) 0 % (0-10); EOSINOPHILS # (AUTO) 0.1 10^3/uL (0.0-0.3); EOSINOPHILS % (AUTO) 2 % (0-10); HEMATOCRIT 37 % (35-52); HEMOGLOBIN 11.9 G/DL (11.5-16.0); LYMPHOCYTES # (AUTO) 1.6 X 10^3 (1.0-4.0); LYMPHOCYTES % (AUTO) 35 % (12-44); MEAN CORPUSCULAR HEMOGLOBIN 26 PG (25-34); MEAN CORPUSCULAR HGB CONC 33 G/DL (32-36); MEAN CORPUSCULAR VOLUME 81 FL (80-99); MEAN PLATELET VOLUME 10.4 FL (7.4-10.4); MONOCYTES # (AUTO) 0.9 X 10^3 (0.0-1.0); MONOCYTES % (AUTO) 20 % (0-12); NEUTROPHILS # (AUTO) 1.9 X 10^3 (1.8-7.8); NEUTROPHILS % (AUTO) 42 % (42-75); PLATELET COUNT 306 10^3/uL (130-400); RED CELL DISTRIBUTION WIDTH 16.4 % (10.0-14.5); WHITE BLOOD COUNT 4.5 10^3/uL (4.3-11.0)
[2018-07-31 09:23] LABS: ALANINE AMINOTRANSFERASE 14 U/L (0-55); ALBUMIN 3.9 GM/DL (3.2-4.5); ALKALINE PHOSPHATASE 82 U/L (40-136); BILIRUBIN,TOTAL 0.3 MG/DL (0.1-1.0); BUN/CREATININE RATIO 16; CALCIUM 9.6 MG/DL (8.5-10.1); CARBON DIOXIDE 21 MMOL/L (21-32); CHLORIDE 109 MMOL/L (98-107); GFR ESTIMATED > 60; GLUCOSE 115 MG/DL (70-105); SODIUM 141 MMOL/L (135-145); TOTAL PROTEIN 6.7 GM/DL (6.4-8.2)
== END 2018-10-29 | disposition home or self-care (01) ==
LOC: ONC 08:56
PROVIDERS: ATTEND Internal Medicine Hematology & Oncology
DX: Z08 Encounter for follow-up examination after completed treatment for malignant neoplasm (principal); Z85.44 Personal history of malignant neoplasm of other female genital organs; I89.0 Lymphedema, not elsewhere classified; I10 Essential (primary) hypertension; E03.9 Hypothyroidism, unspecified; Z79.899 Other long term (current) drug therapy; Z92.21 Personal history of antineoplastic chemotherapy; Z92.3 Personal history of irradiation
CPT/HCPCS: 36415; 80053; 85025; 99213

== ENCOUNTER 2018-08-13 06:00 | Outpatient (RCR) | payer MEDICARE, OTHER | END 2018-08-28 | disposition home or self-care (01) | LOC: CR3 06:00 | PROVIDERS: ATTEND Internal Medicine | DX: Z29.8 Encounter for other specified prophylactic measures (principal) ==

== ENCOUNTER → 2018-09-17 | Outpatient (CLI) | payer MEDICARE, OTHER ==
--- NOTE | 2018-09-17 13:01 | Diagnostic Imaging Report ---
INDICATION: Screening. TECHNIQUE: The current study was also evaluated with a Computer Aided Detection (CAD) system. 3D Tomographic imaging was also performed. COMPARISON: 08/21/2017, 08/09/2016, 06/14/2014, and 03/17/2013. FINDINGS: There are scattered fibroglandular densities bilaterally. There are a few benign type calcifications. There is no dominant mass, spiculated lesion, or suspicious calcification identified. The skin, nipples, and axillae are unremarkable. IMPRESSION: Benign findings. ACR BI-RADS Category 2: Benign findings. Result letter will be mailed to the patient. Note: At least 10% of breast cancer is not imaged by mammography. Dictated by: Dictated on workstation # [id number]
== END ==
LOC: RAD 10:07
PROVIDERS: ATTEND Internal Medicine
DX: Z12.31 Encounter for screening mammogram for malignant neoplasm of breast (principal)
CPT/HCPCS: 77067

== ENCOUNTER → 2019-02-26 | Outpatient (CLI) | payer MEDICARE, OTHER ==
[2019-02-26 09:17] LABS: BASOPHILS % (AUTO) 0 % (0-10); EOSINOPHILS # (AUTO) 0.1 10^3/uL (0.0-0.3); EOSINOPHILS % (AUTO) 1 % (0-10); HEMATOCRIT 38 % (35-52); HEMOGLOBIN 12.3 G/DL (11.5-16.0); LYMPHOCYTES # (AUTO) 1.8 X 10^3 (1.0-4.0); LYMPHOCYTES % (AUTO) 34 % (12-44); MEAN CORPUSCULAR HEMOGLOBIN 25 PG (25-34); MEAN CORPUSCULAR HGB CONC 32 G/DL (32-36); MEAN CORPUSCULAR VOLUME 78 FL (80-99); MEAN PLATELET VOLUME 10.2 FL (7.4-10.4); MONOCYTES # (AUTO) 0.9 X 10^3 (0.0-1.0); MONOCYTES % (AUTO) 17 % (0-12); NEUTROPHILS # (AUTO) 2.5 X 10^3 (1.8-7.8); NEUTROPHILS % (AUTO) 48 % (42-75); PLATELET COUNT 373 10^3/uL (130-400); RED CELL DISTRIBUTION WIDTH 17.2 % (10.0-14.5); WHITE BLOOD COUNT 5.1 10^3/uL (4.3-11.0)
[2019-02-26 09:35] LABS: ALANINE AMINOTRANSFERASE 11 U/L (0-55); ALBUMIN 4.1 GM/DL (3.2-4.5); ALKALINE PHOSPHATASE 90 U/L (40-136); BILIRUBIN,TOTAL 0.4 MG/DL (0.1-1.0); BUN/CREATININE RATIO 14; CALCIUM 9.4 MG/DL (8.5-10.1); CARBON DIOXIDE 26 MMOL/L (21-32); CHLORIDE 107 MMOL/L (98-107); CREATININE SERUM 0.74 MG/DL (0.60-1.30); GFR ESTIMATED > 60; GLUCOSE 111 MG/DL (70-105); POTASSIUM 3.9 MMOL/L (3.6-5.0); SODIUM 139 MMOL/L (135-145); TOTAL PROTEIN 7.2 GM/DL (6.4-8.2)
== END ==
LOC: EDSTATUS 10-30 09:04 → ONC 09:07
PROVIDERS: ATTEND Internal Medicine Hematology & Oncology
DX: C51.8 Malignant neoplasm of overlapping sites of vulva (principal); Z90.89 Acquired absence of other organs
CPT/HCPCS: 80053; 85025; 99213

== ENCOUNTER → 2019-12-17 | Outpatient (CLI) | payer MEDICARE, OTHER ==
--- NOTE | 2019-12-18 09:56 | Diagnostic Imaging Report ---
INDICATION: Routine screening. Comparison is made to prior mammogram 09/17/2018 and 08/20/2017. 2-D and 3-D bilateral screening mammography was performed with CAD. Scattered fibroglandular densities are identified bilaterally. There are benign calcifications in both breasts. No dominant mass or malignant appearing microcalcifications are seen. Axillae are unremarkable. IMPRESSION: BI-RADS Category 2 No mammographic features suspicious for malignancy are identified. ACR BI-RADS Category 2: Benign findings. Result letter will be mailed to the patient. Note: At least 10% of breast cancer is not imaged by mammography. Dictated by: Dictated on workstation # [id number]
== END ==
LOC: RAD 13:55
PROVIDERS: ATTEND Internal Medicine
DX: Z12.31 Encounter for screening mammogram for malignant neoplasm of breast (principal)
CPT/HCPCS: 77063; 77067

== ENCOUNTER 2020-09-09 14:16 | Outpatient (RCR) | payer MEDICARE, OTHER | END 2020-09-15 13:30 | disposition home or self-care (01) | PROVIDERS: ATTEND Internal Medicine | DX: I89.0 Lymphedema, not elsewhere classified (principal) ==

== ENCOUNTER → 2020-09-22 | Outpatient (CLI) | payer MEDICARE, OTHER ==
[2020-09-22 12:40] LABS: ALANINE AMINOTRANSFERASE 17 U/L (0-55); ALBUMIN 3.4 GM/DL (3.2-4.5); ALKALINE PHOSPHATASE 99 U/L (40-136); BILIRUBIN,TOTAL 0.4 MG/DL (0.1-1.0); BUN/CREATININE RATIO 16; CALCIUM 9.4 MG/DL (8.5-10.1); CARBON DIOXIDE 25 MMOL/L (21-32); CHLORIDE 103 MMOL/L (98-107); CREATININE SERUM 0.64 MG/DL (0.60-1.30); GFR ESTIMATED > 60; GLUCOSE 112 MG/DL (70-105); SODIUM 137 MMOL/L (135-145); TOTAL PROTEIN 7.5 GM/DL (6.4-8.2)
--- NOTE | 2020-09-22 17:27 | Diagnostic Imaging Report ---
HISTORY: Left lower extremity pain and lymphedema COMPARISON: None TECHNIQUE: 2 views of the left tibia/fibula FINDINGS: No acute fracture or dislocation is seen in the left tibias/fibula. Alignment is normal. Joint spaces are preserved. There is a left knee arthroplasty with no hardware complication seen on these images. There is mild soft tissue swelling about the left lower leg. IMPRESSION: 1. Mild soft tissue swelling about the left lower leg with no acute osseous abnormality seen. Dictated by: Dictated on workstation # [id number]
--- NOTE | 2020-09-22 17:38 | Diagnostic Imaging Report ---
INDICATION: Lymphedema. History of previous knee replacement. COMPARISON: 07/01/2008 FINDINGS: 3 radiographic views of the left knee were obtained. Postsurgical changes of previous total left knee replacement are identified. Tibial and femoral components appear well seated and well aligned in respect to one another. There is no evidence of periprosthetic fracture or loosening. Moderate joint effusion is suspected. No unexpected radiopaque foreign bodies are seen. IMPRESSION: 1. Postsurgical changes of previous total left knee replacement. No evidence of hardware fracture or failure. 2. Probable moderate joint effusion. Dictated by: Dictated on workstation # [id number]
== END ==
LOC: RAD 11:49
PROVIDERS: ATTEND Nurse Practitioner Family
DX: I89.0 Lymphedema, not elsewhere classified (principal); Z96.652 Presence of left artificial knee joint; Z98.890 Other specified postprocedural states
CPT/HCPCS: 36415; 73562; 73590; 80053

== ENCOUNTER 2020-10-01 10:09 | Outpatient (RCR) | payer MEDICARE, OTHER ==
[2020-10-29] MEDS ORDERED: MELO15TA39 PO (12:50)
[2020-10-29] MEDS ORDERED: PRD20T PO (12:50)
[2020-10-29] MEDS ORDERED: FERR-65 PO (12:50)
== END 2020-12-27 | disposition home or self-care (01) ==
PROVIDERS: ATTEND Internal Medicine
DX: M25.562 Pain in left knee (principal); I10 Essential (primary) hypertension; I89.0 Lymphedema, not elsewhere classified

== ENCOUNTER 2020-11-03 05:30 | Outpatient (RCR) | payer MEDICARE, OTHER ==
[~2020-11-03] VITALS: Ht 140 cm; Wt 81.7 kg
[~2020-11-03 05:30] MED LIST changes: +FERR-65 PO; +MELO15TA39 PO; +PRD20T PO
== END 2020-11-03 10:22 | disposition home or self-care (01) ==
LOC: PREOP 05:30
PROVIDERS: ATTEND Internal Medicine
DX: Z01.818 Encounter for other preprocedural examination (principal); D50.9 Iron deficiency anemia, unspecified; Z20.822 Contact with and (suspected) exposure to COVID-19
CPT/HCPCS: 87635

== ENCOUNTER 2020-11-05 09:21 | Day surgery (SDC) | payer MEDICARE, OTHER ==
--- NOTE | 2020-10-29 06:52 | HISTORY AND PHYSICAL ---
DATE OF SERVICE: EGD HISTORY AND PHYSICAL HISTORY OF PRESENT ILLNESS: The patient is a 69-year-old white female, who had recent screening blood tests revealing significant iron deficiency anemia. Her hemoglobin was down to 8.7 with an MCV of 68.3. Her white count was normal at 7.5 with an unremarkable differential and platelet count was elevated at 471018. She in June through August had been taking increased amount of ibuprofen due to left knee pain and swelling subsequent to a fall. She does have bilateral total knee replacements and seen her orthopedist who did not see any hardware abnormalities. She recently went to the lymphedema clinic; however, they were concerned that she may have an infection as there was some warmth and erythema about the left knee and they refused to change compression or do any other therapy for concerns of aggravating infection. The patient denies any increase in pain. She has been getting around well, has had no night sweats, chills or fever. She has had no abdominal symptoms and denies melena or bright red blood per rectum. No indigestion, heartburn or dysphagia noted. She accomplished colonoscopy that was unremarkable in 2018. PHYSICAL EXAMINATION: GENERAL: Reveals a pleasant white female appeared to be in no acute distress. VITAL SIGNS: Blood pressure 124/78. CHEST: Clear. CARDIOVASCULAR: Regular rate and rhythm without murmur, S3 or S4, heart rate 70. ABDOMEN: Soft, supple without mass, organomegaly or tenderness. EXTREMITIES: Left knee has some chronic lymphedema. There is some violaceous erythema, more so over the lateral aspect of the knee with warmth, difficult to tell if there is a small effusion or not with underlying lymphedema 2+. No pain to palpation and sensation intact. The patient does also report there is some itching over the area. ASSESSMENT AND PLAN: 1. New onset iron deficiency anemia. We will initiate an evaluation with EGD considering ibuprofen usage. This will be set up for the 11/05/2020. We will initiate iron sulfate 325 mg every other day. Discussed that it may darken her stool just a little bit and to be wary of constipation although hopefully every other day use will obviate this. She is someone who is getting sufficient amount of iron in her diet and has had no bleeding issues making iron deficiency due to poor intake highly unlikely. 2. Left knee swelling and inflammation, considering that there is itching and no pain, infection is unlikely. I am going to give her a short course of prednisone and we will reevaluate the area next Sunday at the time of her EGD evaluation. Job ID: [id number] DocumentID: [id number] Dictated Date: 10/28/2020 11:58:08 Sidehand Date: 10/28/2020 12:12:14 Dictated By: JEFFERSON TREVINO MD MTDD
[~2020-11-05] VITALS: Ht 140 cm; Wt 81.7 kg
[2020-11-05] MEDS ORDERED: LACTATED RINGERS 1,000 ML IV ONE ×2 (09:33→10:30)
[2020-11-05 09:40] VITALS: BP 137/83
[2020-11-05] MEDS ORDERED: LACTATED RINGERS 1,000 ML IV STA (09:47)
[2020-11-05] MEDS ORDERED: HURRICAINE EXT TUBE (BENZOCAINE) XX PRN (10:00)
[2020-11-05] MEDS ORDERED: LIDOCAINE JELLY 2% 6 ML SYRINGE MM PRN (10:00)
--- NOTE | 2020-11-05 10:12 | Pre-Op Note & Conscious Sedat ---
Pre-Operative Progress Note H&P Reviewed The H&P was reviewed, patient examined and no changes noted. Date H&P Reviewed: Nov 05, 2020 Time H&P Reviewed: 10:12 Conscious Sedation Pre-Proced ASA Score 2 For ASA 3 and 4: Consider anesthesia and medical clearance. Also, for patients with a history of failed moderate sedation consider anesthesia. Airway Lungs Heart ASA score ASA 1: a normal healthy patient ASA 2: a patient with a mild systemic disease (mid diabetes, controlled hypertension, obesity ASA 3: a patient with a severe systemic disease that limits activity (angina, COPD, prior Myocardial infarction) ASA 4: a patient with an incapacitating disease that is a constant threat to life (CHF, renal failure) ASA 5: a moribund patient not expected to survive 24 hrs. (ruptured aneurysm) ASA 6: a declared brain- patient whose organs are being harvested. For emergent operations, add the letter E after the classification Mallampati Classification Grade 2 Sedation Plan Analgesia, Amnesia, Plan communicated to team members, Discussed options with patient/fam, Discussed risks with patient/fam The patient is an appropriate candidate to undergo the planned procedure, sedation, and anesthesia. The patient immediately re-assessed prior to indication. JEFFERSON TREVINO MD Nov 05, 2020 10:12
[2020-11-05] MEDS ORDERED: proPOfol 200 MG/20 ML (DIPRIVAN) VIAL IV ONE (11:11)
[2020-11-05 11:38] VITALS: BP 112/62
[2020-11-05 11:42] VITALS: BP 121/60
[2020-11-05 11:45] VITALS: BP 112/56
--- NOTE | 2020-11-05 11:52 | Anesthesia-General Post-Op ---
MAC Patient Condition Mental Status/LOC: Same as Preop Cardiovascular: Satisfactory Nausea/Vomiting: Absent Respiratory: Satisfactory Pain: Controlled Complications: Absent Post Op Complications Complications None Follow Up Care/Instructions Patient Instructions None needed. Anesthesiology Discharge Order Discharge Order Patient is doing well, no complaints, stable vital signs, no apparent adverse anesthesia problems. No complications reported per nursing. LUX BONDS CRNA Nov 05, 2020 11:52
[2020-11-05 12:07] VITALS: BP 130/72
[2020-11-05 12:08] VITALS: BP 130/72
--- NOTE | 2020-11-05 14:12 | OPERATIVE REPORT ---
DATE OF SERVICE: EGD SUMMARY INDICATION FOR THE PROCEDURE: Iron deficiency anemia, nonsteroidal usage. DESCRIPTION OF PROCEDURE: The patient was placed in the left lateral decubitus position. The endoscope was inserted in the oral cavity and under direct visualization advanced down the esophagus through stomach into the second portion of the duodenum. A careful inspection was made as the endoscope was withdrawn. FINDINGS: The proximal, mid and distal esophagus were unremarkable, say for the fact that the Z line was proximally placed due to a moderate 3-4 cm sized hiatal hernia. The Z line was noted at 35 cm from the level of the incisors. There was no evidence for erosive esophagitis or Leung's change. The cardia and fundus of the stomach were unremarkable. Two submucosal appearing nodules were noted, one had an erythematous area on the back area without overt evidence for ulceration. Biopsies were obtained and submitted for histopathology. The pylorus, pyloric channel, the duodenal bulb and second portion of duodenum were unremarkable. ASSESSMENT: Two Submucosal nodules roughly 1.5 cm in size were noted. One did have an area of erythema on the back side with probably a small amount of blood without overt evidence for ulceration, potential bleeding site. Biopsies were obtained and submitted with further recommendations pending histopathology report. In the meantime, the patient is to abstain from aspirin and nonsteroidal medication. Job ID: [id number] DocumentID: [id number] Dictated Date: 11/05/2020 11:45:09 Senior Svp Date: 11/05/2020 14:12:17 Dictated By: JEFFERSON TREVINO MD
== END 2020-11-05 12:20 | disposition home or self-care (01) ==
LOC: ENDO 09:21
PROVIDERS: ATTEND Internal Medicine
DX: D50.9 Iron deficiency anemia, unspecified (principal); K44.9 Diaphragmatic hernia without obstruction or gangrene; I10 Essential (primary) hypertension; F41.9 Anxiety disorder, unspecified; E03.9 Hypothyroidism, unspecified; Z79.899 Other long term (current) drug therapy; Z79.890 Hormone replacement therapy

== ENCOUNTER → 2021-02-16 | Outpatient (CLI) | payer MEDICARE, OTHER ==
[~2021-02-16] MED LIST changes: +CATHETER FLUSH 10 ML SYR IV PRN; +HOLD METFORMIN - RECEIVED CONTRAST 20 ML VIAL IV SCH; +IOHEXOL 350 MG/ML 100 ML (OMNIPAQUE 350) VIAL IV ONE; +NS 100 ML (IVPB) BAG IV ONE
--- NOTE | 2021-02-16 10:48 | Diagnostic Imaging Report ---
PROCEDURE: CT abdomen and pelvis with contrast. TECHNIQUE: Multiple contiguous axial images were obtained through the abdomen and pelvis after administration of intravenous contrast. Auto Exposure Controls were utilized during the CT exam to meet ALARA standards for radiation dose reduction. All CT scans use one or more of the following dose optimizing techniques: automated exposure control, MA and/or KvP adjustment based on patient size and exam type or iterative reconstruction. INDICATION: 70-year-old female, vulvar carcinoma with increasing lower extremity edema. CORRELATION STUDY: 08/24/2015 FINDINGS: LOWER THORAX: Clear. Hiatal hernia with perhaps mild reflux. LIVER: Unremarkable. GALLBLADDER: Present and unremarkable. No bile duct dilatation. SPLEEN: A few calcified granulomas. Normal in size. PANCREAS: Unremarkable. ADRENAL GLANDS: Unremarkable. KIDNEYS: Normal configuration. No calcification or obstruction. ABDOMINAL AORTA: Unremarkable, nonaneurysmal. The inferior vena cava normal and caliber. Common, internal and external iliac veins also appear to be generally unremarkable. No definitive intraluminal filling defect. Few shotty aortocaval lymph nodes. Slightly more prominent left common iliac lymph node, approximately 1 cm in short axis dimension. No definitive abnormal pelvic sidewall lymph node mass. GASTROINTESTINAL TRACT: No obstruction or inflammation. Normal appendix. URINARY BLADDER: Decompressed. REPRODUCTIVE: Post hysterectomy. OSSEOUS STRUCTURES: No acute abnormality. OTHER: Extensive soft tissue distortion with surgical clips bilateral inguinal region left greater than right. Likely chronic small encapsulated fluid collection left inguinal region. The overall soft tissue distortion appears generally stable. There is asymmetric edema and haziness within the subcutaneous tissues of the proximal thigh and groin. Slightly more prominent from prior. IMPRESSION: 1. Extensive postsurgical distortion of the bilateral inguinal regions left greater than right. 2. Asymmetric soft tissue edema about the proximal visualized left thigh and inguinal region. Appearing slightly more prominent from prior. Dictated by: Dictated on workstation # [id number]
== END ==
LOC: RAD 09:00
PROVIDERS: ATTEND Internal Medicine
DX: C51.9 Malignant neoplasm of vulva, unspecified (principal)
CPT/HCPCS: 74177

== ENCOUNTER → 2021-10-11 | Outpatient (CLI) | payer MEDICARE, OTHER ==
[~2021-10-11] MED LIST changes: -CATHETER FLUSH 10 ML SYR IV PRN; -HOLD METFORMIN - RECEIVED CONTRAST 20 ML VIAL IV SCH; -IOHEXOL 350 MG/ML 100 ML (OMNIPAQUE 350) VIAL IV ONE; -NS 100 ML (IVPB) BAG IV ONE
[2021-10-11 19:54] LABS: BASOPHILS % (AUTO) 1 % (0-10); EOSINOPHILS # (AUTO) 0.1 10^3/uL (0.0-0.3); EOSINOPHILS % (AUTO) 2 % (0-10); HEMATOCRIT 35 % (35-52); HEMOGLOBIN 10.9 g/dL (11.5-16.0); LYMPHOCYTES # (AUTO) 2.1 10^3/uL (1.0-4.0); LYMPHOCYTES % (AUTO) 32 % (12-44); MEAN CORPUSCULAR HEMOGLOBIN 26 pg (25-34); MEAN CORPUSCULAR HGB CONC 31 g/dL (32-36); MEAN CORPUSCULAR VOLUME 83 fL (80-99); MEAN PLATELET VOLUME 11.5 fL (9.0-12.2); MONOCYTES # (AUTO) 0.9 10^3/uL (0.0-1.0); MONOCYTES % (AUTO) 14 % (0-12); NEUTROPHILS # (AUTO) 3.3 10^3/uL (1.8-7.8); NEUTROPHILS % (AUTO) 51 % (42-75); PLATELET COUNT 314 10^3/uL (130-400); WHITE BLOOD COUNT 6.5 10^3/uL (4.3-11.0)
[2021-10-11 20:09] LABS: POTASSIUM 3.7 MMOL/L (3.6-5.0)
[2021-10-11 20:10] LABS: CALCIUM 9.4 MG/DL (8.5-10.1)
[2021-10-11 20:15] LABS: CREATININE SERUM 0.71 MG/DL (0.60-1.30)
[2021-10-11 20:19] LABS: ERYTHROCYTE SEDIMENTATION RATE 25 MM/HR (0-30)
== END ==
LOC: LABNPT 19:13
PROVIDERS: ATTEND Orthopaedic Surgery
DX: T84.54XD Infection and inflammatory reaction due to internal left knee prosthesis, subsequent encounter (principal)
CPT/HCPCS: 80048; 85025; 85652; 86141

== ENCOUNTER → 2021-11-16 | Outpatient (RCR) | payer MEDICARE, OTHER | END | disposition home or self-care (01) | PROVIDERS: ATTEND Nurse Practitioner | DX: M25.562 Pain in left knee (principal); I10 Essential (primary) hypertension; Z96.652 Presence of left artificial knee joint ==

== ENCOUNTER → 2021-12-16 | Outpatient (RCR) | payer MEDICARE, OTHER | END | disposition home or self-care (01) | PROVIDERS: ATTEND Nurse Practitioner | DX: Z47.1 Aftercare following joint replacement surgery (principal); Z96.652 Presence of left artificial knee joint ==

== ENCOUNTER 2022-01-13 14:34 | Outpatient (RCR) | payer MEDICARE, OTHER | END 2022-01-16 | disposition home or self-care (01) | PROVIDERS: ATTEND Nurse Practitioner | DX: M25.562 Pain in left knee (principal); I10 Essential (primary) hypertension; Z96.652 Presence of left artificial knee joint ==

== ENCOUNTER 2022-01-20 09:33 | Outpatient (RCR) | payer MEDICARE, OTHER | END 2022-01-20 10:16 | disposition home or self-care (01) | PROVIDERS: ATTEND Nurse Practitioner | DX: M25.562 Pain in left knee (principal); I10 Essential (primary) hypertension; Z96.652 Presence of left artificial knee joint ==